=== PATIENT | female | born 1995 | race Caucasian/White ===

== ENCOUNTER → 2019-01-27 | Outpatient (CLI) | payer OTHER ==
[~2019-01-27] MED LIST: GADOBUTROL 10 ML VIAL IVP ONE; GLUCAGON HCL 0.3 MG in SYRINGE 0.3 ML IVP ONE
== END ==
LOC: FIMAGING 09:59
DX: K63.89 Other specified diseases of intestine (principal); K51.911 Ulcerative colitis, unspecified with rectal bleeding
CPT/HCPCS: A9585; J1610